=== PATIENT | male | born 1955 | race Caucasian/White ===

== ENCOUNTER 2021-11-21 20:28 | Emergency (ER) | payer MEDICARE ==
[2021-11-21] MEDS ORDERED: Zofran 4 MG/2 ML VIAL IV ONE (21:20)
[2021-11-21] MEDS ORDERED: MORPHINE SULFATE 4 MG INJ IV ONE (21:20)
[2021-11-21] MEDS ORDERED: Sodium Chloride 0.9% 500 ML 500 ML IV ONE ×2 (21:21→21:24)
[2021-11-21] MEDS ORDERED: Zofran 4 MG/2 ML VIAL ONE (21:23)
[2021-11-21] MEDS ORDERED: MORPHINE SULFATE 4 MG INJ ONE (21:23)
--- NOTE | 2021-11-21 21:26 | ERPHSYRPT ---
- History of Present Illness Time Seen by Provider: 11/21/21 20:48 Historian: patient Exam Limitations: no limitations Patient Subjective Stated Complaint: Patient started having abdominal pain approx 4-5 hours ago. Patient states he took a tums in hopes it was indigestion, which helped a little bit so he decided to eat some dinner around 7pm. Patient states approx 10 minutes after finishing dinner, he vomited up his entire meal and the pain became worse. States pain is in his upper mid abdomen just below his sternum. Denies diarrhea or constipation with last BM this am; reports normal in appearance. Denies SOB or chest pain. Triage Nursing Assessment: Patient ambulated back to ED holding/gaurding the area just above his abdomen. He is alert and oriented and answering questions appropriately. Abdomen is large and firm. Denies pain radiating/moving anywhere else. Denies increase in pain during palpation but grimaced and yelled out in p ain with deep palpation to right upper abdominal quad. Hypoactive bowel sounds. No SOB noted. Physician History: 66 years old male with a history of coronary artery disease status post CABG, hypertension, hyperlipidemia presented in the ER with 4-5-hour history of epigastric pain sudden onset moderate to severe intensity sharp nature which got somewhat better with taking Tums but after eating dinner it got worse again and had nausea and vomited prior to arrival. Patient currently rates -07/2010 intensity pain with none radiation. No fever or chills reported. Timing/Duration: hour(s) (5), constant, sudden, worse Activities at Onset: rest Quality: sharpness Abdominal Pain Onset Location: RUQ, epigastric, periumbilical Pain Radiation: no radiation Severity of Pain-Max: severe Severity of Pain-Current: severe Modifying Factors: Worsens With: eating Associated Symptoms: nausea, vomiting Previous symptoms: no prior history Allergies/Adverse Reactions: No Known Drug Allergies Allergy (Verified 11/21/21 20:53) Home Medications: Atorvastatin Calcium 80 mg PO DAILY 02/09/13 [History] Clopidogrel Bisulfate [Plavix] 75 mg PO DAILY 02/09/13 [History] Diclofenac Sodium [Voltaren] 75 mg PO BID 02/09/13 [History] Calhoun-3 Fatty Acids/Fish Oil [Fish Oil 1,000 mg Capsule] 120 mg PO QID 02/09/13 [History] Vitamin B Complex [B Complex] 1 each PO DAILY 02/09/13 [History] Carvedilol 3.125 mg [Coreg 3.125 MG] 6.25 mg PO BID 03/12/16 [History] Alpha Lipoic Acid 1 cap PO BID 11/21/21 [History] Folic Acid/Vit B Complex and C [Nephro-Sara Tablet] 1 tab PO DAILY 11/21/21 [History] Gabapentin 100 mg [Neurontin 100 MG] 1 cap PO TID 11/21/21 [History] Isosorbide Mononitrate [Isosorbide Mononitrate ER] 1 tab PO DAILY 11/21/21 [History] Valsartan 1 tab PO DAILY 11/21/21 [History] Hx Tetanus, Diphtheria Vaccination/Date Given: Yes Hx Influenza Vaccination/Date Given: Yes Hx Pneumococcal Vaccination/Date Given: No Immunizations Up to Date: Yes Travel Risk - International Travel Have you traveled outside of the country in past 3 weeks: No - Coronavirus Screening Are you exhibiting any of the following symptoms?: Yes Symptoms: Vomiting/Diarrhea Close contact with a COVID-19 positive Pt in past 14-21 Days: No - Vaccine Status Have you recieved a Covid-19 vaccination: Yes Component Design Engineer: [employer] - Vaccination Dates Date of 2cond Vaccination (if applicable): 2020 Comment: Booster recently - Review of Systems Constitutional: No Symptoms Eyes: No Symptoms Ears, Nose, & Throat: No Symptoms Respiratory: No Symptoms Cardiac: No Symptoms Abdominal/Gastrointestinal: Abdominal Pain, Nausea, Vomiting Genitourinary Symptoms: No Symptoms Musculoskeletal: No Symptoms Skin: No Symptoms Neurological: No Symptoms Psychological: No Symptoms Endocrine: No Symptoms Hematologic/Lymphatic: No Symptoms Immunological/Allergic: No Symptoms - Past Medical History Pertinent Past Medical History: Yes Neurological History: No Pertinent History ENT History: No Pertinent History Cardiac History: Angina, Coronary Artery Disease, High Cholesterol, Hypertension Respiratory History: No Pertinent History Endocrine Medical History: No Pertinent History Musculoskeletal History: Arthritis GI Medical History: No Pertinent History History: No Pertinent History Psycho-Social History: No Pertinent History Male Reproductive Disorders: No Pertinent History Other Medical History: 2 cody for chronic back pain - Past Surgical History Past Surgical History: Yes Neuro Surgical History: No Pertinent History Cardiac: Cardiac Catheterization, Cardiac Stent, Other Respiratory: No Pertinent History Gastrointestinal: No Pertinent History Genitourinary: No Pertinent History Musculoskeletal: Other Male Surgical History: No Pertinent History Other Surgical History: back surgery, Triple bypass in 2017 - Social History Smoking Status: Former smoker How long have you smoked: 35yrs Exposure to second hand smoke: No Drug Use: none Patient Lives Alone: No - Nursing Vital Signs Nursing Vital Signs: Initial Vital Signs Temperature 97.6 F 11/21/21 20:54 Pulse Rate 71 11/21/21 20:54 Respiratory Rate 22 11/21/21 20:54 Blood Pressure 197/111 11/21/21 20:54 O2 Sat by Pulse Oximetry 97 11/21/21 20:54 Pain Scale Pain Intensity 3 - Physical Exam General Appearance: no apparent distress, alert Eye Exam: PERRL/EOMI, eyes nml inspection Ears, Nose, Throat Exam: normal ENT inspection, pharynx normal Neck Exam: normal inspection, non-tender, supple, full range of motion Respiratory Exam: normal breath sounds, lungs clear Cardiovascular Exam: regular rate/rhythm, normal heart sounds Gastrointestinal/Abdomen Exam: tenderness, guarding (Epigastrium/right upper quadrant with positive Lala sign.), No normal bowel sounds (Hypoactive) Extremity Exam: normal inspection, normal range of motion Neurologic Exam: alert, oriented x 3, cooperative SpO2 Interpretation: normal SpO2: 97 O2 Delivery: Room Air Ordered Tests: Active Orders 24 hr Category Date Time Status EKG-ER Only STAT Care 11/21/21 21:20 Active IV Insertion STAT Care 11/21/21 21:20 Active NPO (ED) STAT Care 11/21/21 21:20 Active ABDOMEN AND PELVIS W CONTRAST [CT] Stat Exams 11/21/21 21:20 Taken CBC W DIFF Stat Lab 11/21/21 21:35 Completed CMP Stat Lab 11/21/21 21:35 Completed LIPASE Stat Lab 11/21/21 21:35 Completed TROPONIN Q3H Lab 11/21/21 21:35 Completed TROPONIN Q3H Lab 11/22/21 00:30 Ordered TROPONIN Q3H Lab 11/22/21 03:30 Ordered TROPONIN Q3H Lab 11/22/21 06:30 Ordered TROPONIN Q3H Lab 11/22/21 09:30 Ordered UA W/RFX UR CULTURE Stat Lab 11/21/21 21:20 Completed Medication Summary Discontinued Medications Generic Name Dose Route Start Last Admin Trade Name Freq PRN Reason Stop Dose Admin Sodium Chloride 500 mls @ 500 mls/hr 11/21/21 21:21 11/21/21 22:27 Sodium Chloride 0.9% 500 Ml IV 11/21/21 22:20 Infused .Q1H ONE Infusion Sodium Chloride Confirm 11/21/21 21:24 Sodium Chloride 0.9% 500 Ml Administered 11/21/21 21:25 Dose 500 mls @ ud IV .STK-MED ONE Morphine Sulfate 4 mg 11/21/21 21:20 11/21/21 21:25 Morphine Sulfate 4 Mg/Ml Injection IV 11/21/21 21:21 4 mg STAT ONE Administration Morphine Sulfate Confirm 11/21/21 21:23 Morphine Sulfate 4 Mg/Ml Injection Administered 11/21/21 21:24 Dose 4 mg .ROUTE .STK-MED ONE Ondansetron HCl 4 mg 11/21/21 21:20 11/21/21 21:25 Ondansetron Hcl 4 Mg/2 Ml Vial IV 11/21/21 21:21 4 mg STAT ONE Administration Ondansetron HCl Confirm 11/21/21 21:23 Ondansetron Hcl 4 Mg/2 Ml Vial Administered 11/21/21 21:24 Dose 4 mg .ROUTE .STK-MED ONE Lab/Rad Data: Laboratory Result Diagrams 11/21/21 21:35 11/21/21 21:35 Laboratory Results 11/21/21 11/21/21 11/21/21 Range/Units 21:35 21:35 21:35 WBC 8.8 (4.0-10.5) K/mm3 RBC 5.53 (4.1-5.6) M/mm3 Hgb 17.0 (12.5-18.0) gm/dl Hct 49.4 (42-50) % MCV 89.3 (78-100) fl MCH 30.7 (26-32) pg MCHC 34.4 (32-36) g/dl RDW 12.7 (11.5-14.0) % Plt Count 238 (150-450) K/mm3 MPV 10.0 (7.5-11.0) fl Gran % 66.3 H (36.0-66.0) % Eos # (Auto) 0.19 (0-0.5) Absolute Lymphs (auto) 2.11 (1.0-4.6) Absolute Monos (auto) 0.63 (0.0-1.3) Lymphocytes % 24.0 (24.0-44.0) % Monocytes % 7.2 (0.0-12.0) % Eosinophils % 2.2 (0.00-5.0) % Basophils % 0.3 (0.0-0.4) % Absolute Granulocytes 5.82 (1.4-6.9) Basophils # 0.03 (0-0.4) Sodium 140 (137-145) mmol/L Potassium 4.6 (3.5-5.1) mmol/L Chloride 102 (98-107) mmol/L Carbon Dioxide 25 (22-30) mmol/L Anion Gap 17.2 H (5-15) MEQ/L BUN 21 H (9-20) mg/dL Creatinine 0.87 (0.66-1.25) mg/dL Estimated GFR > 60.0 ML/MIN Glucose 116 H (74-106) mg/dL Calcium 9.9 (8.4-10.2) mg/dL Total Bilirubin 0.90 (0.2-1.3) mg/dL AST 42 (17-59) U/L ALT 46 (0-50) U/L Alkaline Phosphatase 103 (38-126) U/L Troponin I < 0.012 (0.000-0.034) ng/mL Serum Total Protein 8.0 (6.3-8.2) g/dL Albumin 5.0 (3.5-5.0) g/dL Lipase 105 (23-300) U/L Urine Color (YELLOW) Urine Appearance (CLEAR) Urine pH (5-6) Ur Specific [place] (1.005-1.025) Urine Protein (Negative) Urine Ketones (NEGATIVE) Urine Blood (0-5) Hawk/ul Urine Nitrite (NEGATIVE) Urine Bilirubin (NEGATIVE) Urine Urobilinogen (0-1) mg/dL Ur Leukocyte Esterase (NEGATIVE) Urine WBC (Auto) (0-5) /HPF Urine RBC (Auto) (0-2) /HPF U Epithel Cells (Auto) (FEW) /HPF Urine Bacteria (Auto) (NEGATIVE) /HPF Urine Mucus (Auto) (NEGATIVE) /HPF Urine Culture Reflexed (NO) Urine Glucose (NEGATIVE) mg/dL 11/21/21 Range/Units 21:20 WBC (4.0-10.5) K/mm3 RBC (4.1-5.6) M/mm3 Hgb (12.5-18.0) gm/dl Hct (42-50) % MCV (78-100) fl MCH (26-32) pg MCHC (32-36) g/dl RDW (11.5-14.0) % Plt Count (150-450) K/mm3 MPV (7.5-11.0) fl Gran % (36.0-66.0) % Eos # (Auto) (0-0.5) Absolute Lymphs (auto) (1.0-4.6) Absolute Monos (auto) (0.0-1.3) Lymphocytes % (24.0-44.0) % Monocytes % (0.0-12.0) % Eosinophils % (0.00-5.0) % Basophils % (0.0-0.4) % Absolute Granulocytes (1.4-6.9) Basophils # (0-0.4) Sodium (137-145) mmol/L Potassium (3.5-5.1) mmol/L Chloride (98-107) mmol/L Carbon Dioxide (22-30) mmol/L Anion Gap (5-15) MEQ/L BUN (9-20) mg/dL Creatinine (0.66-1.25) mg/dL Estimated GFR ML/MIN Glucose (74-106) mg/dL Calcium (8.4-10.2) mg/dL Total Bilirubin (0.2-1.3) mg/dL AST (17-59) U/L ALT (0-50) U/L Alkaline Phosphatase (38-126) U/L Troponin I (0.000-0.034) ng/mL Serum Total Protein (6.3-8.2) g/dL Albumin (3.5-5.0) g/dL Lipase (23-300) U/L Urine Color YELLOW (YELLOW) Urine Appearance SLIGHTLY CLOUDY (CLEAR) Urine pH 5.0 (5-6) Ur Specific [place] 1.015 (1.005-1.025) Urine Protein NEGATIVE (Negative) Urine Ketones NEGATIVE (NEGATIVE) Urine Blood NEGATIVE (0-5) Hawk/ul Urine Nitrite NEGATIVE (NEGATIVE) Urine Bilirubin NEGATIVE (NEGATIVE) Urine Urobilinogen NEGATIVE (0-1) mg/dL Ur Leukocyte Esterase NEGATIVE (NEGATIVE) Urine WBC (Auto) NONE (0-5) /HPF Urine RBC (Auto) NONE (0-2) /HPF U Epithel Cells (Auto) NONE (FEW) /HPF Urine Bacteria (Auto) NONE (NEGATIVE) /HPF Urine Mucus (Auto) SLIGHT (NEGATIVE) /HPF Urine Culture Reflexed NO (NO) Urine Glucose NEGATIVE (NEGATIVE) mg/dL - Progress Progress: improved Progress Note: 11/21/21 23:52 66-year-old is evaluated for epigastric/right upper quadrant pain. Given pain medication x1, on reevaluation feeling much better and no peritoneal signs Has normal white count, grossly unremarkable chemistries including liver enzymes. CT showed pericholecystic fluid/edema with some sludge. Discussed with Dr. Duran, reviewed history, work-up, recommended outpatient follow-up with him in the morning. We will give him pain medications to go home. Discussed signs symptoms of worsening needing return to ER which he seems understanding. Stable for discharge. Discussed with Dr.: Maegan Counseled pt/family regarding: lab results, diagnosis, need for follow-up, rad results - Departure Departure Disposition: Home Clinical Impression: Cholecystitis, Dizziness Critical Care Time: No Referrals: ANT CARLOS MD [Primary Care Provider] - NICOL PACK [ACTIVE STAFF] - Follow up/PCP as directed (Call in the morning for appointment and further evaluation.) Instructions: Gallstones (DC) Additional Instructions: Take pain medications as needed. Follow-up with Dr. Duran tomorrow for reeva luation. Return to ER for intractable pain/vomiting/fever chills etc. Prescriptions: Hydrocodone/Acetaminophen [Hydrocodone-Acetamin 7.5-325] 1 each PO Q6HPRN PRN 3 Days #12 tablet MDD 4 PRN Reason: Pain
[2021-11-21 21:32] LABS: Appearance SLIGHTLY CLOUDY (CLEAR); Bilirubin NEGATIVE (NEGATIVE); Blood NEGATIVE Ery/ul (0-5); Glucose NEGATIVE (NEGATIVE); Ketones NEGATIVE (NEGATIVE); Leukocyte Esterase NEGATIVE (NEGATIVE); Mucus SLIGHT /HPF (NEGATIVE); Nitrite NEGATIVE (NEGATIVE); Protein,Urine Dip NEGATIVE (Negative); Specific Gravity 1.015 (1.005-1.025); Urobilinogen NEGATIVE mg/dL (0-1)
[2021-11-21 21:47] LABS: Absolute Neutrophil Ct (ANC) 5.82 (1.4-6.9); Basophil (Absolute #) 0.03 (0-0.4); Eosinophil % 2.2 % (0.00-5.0); Eosinophil (Absolute #) 0.19 (0-0.5); Hematocrit 49.4 % (42-50); Lymphocyte (Absolute #) 2.11 (1.0-4.6); Mean Cell Volume 89.3 fl (78-100); Mean Corpuscular Hemoglobin 30.7 pg (26-32); Mean Corpuscular Hgb Concent. 34.4 g/dl (32-36); Monocyte (Absolute #) 0.63 (0.0-1.3); Monocytes % 7.2 % (0.0-12.0); Neutrophil % 66.3 % (36.0-66.0); Platelet Count 238 K/mm3 (150-450); Red Blood Count 5.53 M/mm3 (4.1-5.6); Red Cell Distribution Width 12.7 % (11.5-14.0); White Blood Count 8.8 K/mm3 (4.0-10.5)
[2021-11-21 22:04] LABS: ALKALINE PHOSPHATASE 103 U/L (38-126); ANION GAP 17.2 MEQ/L (5-15); BLOOD UREA NITROGEN 21 mg/dL (9-20); CHLORIDE 102 mmol/L (98-107); Calcium 9.9 mg/dL (8.4-10.2); Carbon Dioxide 25 mmol/L (22-30); Creatinine 1 0.87 mg/dL (0.66-1.25); EST GLOMERULAR FILTRATION RATE > 60.0 ML/MIN; Glucose 116 mg/dL (74-106); LIPASE 105 U/L (23-300); Potassium 4.6 mmol/L (3.5-5.1); SGOT/AST 42 U/L (17-59); SGPT/ALT 46 U/L (0-50); SODIUM 140 mmol/L (137-145)
[2021-11-21] MEDS ORDERED: NORCO 5/325 MG PO ONE (23:56)
[2021-11-21] MEDS ORDERED: NORCO 5/325 MG ONE (23:58)
[2021-11-22 00:12] VITALS: BP 130/82; PULSE 74; O2SAT 98
--- NOTE | 2021-11-22 08:46 | XRAY ---
Indication: Upper abdomen pain, nausea, and vomiting. Cholecystitis. Pancreatitis. History of prostate cancer. Multiple contiguous axial images obtained through the abdomen and pelvis using 80 cc Isovue 370 contrast. Comparison: June 01, 2021. Lung bases again demonstrates mild dependent atelectasis. No infiltrate or effusion. Heart is not enlarged. Stable small hiatal hernia. Stomach is distended with food/fluid. Noncontrasted stomach and bowel loops appear nonobstructed with normal appendix. New prostate radiation seeds. Gallbladder is mildly distended again with tiny fundal gallstones/gravel. No abnormal biliary distention. Stable fatty liver. Remaining liver, gallbladder, pancreas, spleen, adrenal glands, kidneys, ureters, and bladder are unremarkable. There remains mild aortoiliac calcifications. No AAA or pathologic retroperitoneal lymphadenopathy. Osseous structures intact again with mild degenerative changes throughout the spine and 2 small sclerotic lesions of the left innominate bone. Stable small fatty left inguinal hernia. Impression: 1. Distended gallbladder with stable tiny gallstones/gravel. Gallbladder sonogram may yield further information if clinically warranted. 2. Again incidental small hiatal hernia, fatty liver, small fatty left inguinal hernia, and chronic bony findings. Comment: Preliminary interpretation made by [facility]. No critical discrepancy.
== END 2021-11-22 00:13 | disposition home or self-care (01) ==
LOC: ED 20:28
DX: K81.9 Cholecystitis, unspecified (principal); R42 Dizziness and giddiness; I25.10 Atherosclerotic heart disease of native coronary artery without angina pectoris; I10 Essential (primary) hypertension; Z95.1 Presence of aortocoronary bypass graft; E78.5 Hyperlipidemia, unspecified; Z79.01 Long term (current) use of anticoagulants; Z79.899 Other long term (current) drug therapy; Z79.891 Long term (current) use of opiate analgesic
CPT/HCPCS: 36000; 36415; 74177; 80053; 81001; 83690; 84484; 85025; 93005; 96374; 96375; 99284; J2270; J2405; A9270-GY

== ENCOUNTER 2021-12-06 06:30 | Day surgery (SDC) | payer MEDICARE ==
--- NOTE | 2021-11-30 15:12 | HP ---
DATE OF SURGERY: 12/06/2021 HISTORY OF PRESENT ILLNESS: The patient is a 66-year-old male presents with complaints of bad epigastric pain at night. The patient went to the emergency room for this. He states he has not had pain like this in the past. He did report eating some chicken and had a flare up with this. He had a touch of nausea and vomiting. The patient did have an ultrasound showing some gallstones during the emergency room visit. PAST MEDICAL HISTORY: Hypertension. Hyperlipidemia. Coronary artery disease. PAST SURGICAL HISTORY: Triple bypass. Coronary artery bypass graft 2016. Prostate seeds in August for prostate cancer. ALLERGIES: NKDA. MEDICATIONS: Atorvastatin, Plavix, Valsartan, isosorbide, Coreg, diclofenac, Lomotil. FAMILY HISTORY: Prostate cancer. SOCIAL HISTORY: None reported. REVIEW OF SYSTEMS: CONSTITUTIONAL: Denies fever or chills. CHEST: Denies shortness of breath. CVS: Denies chest pain. ABDOMEN: Reports severe epigastric pain, nausea, vomiting, occasional diarrhea. Denies constipation or rectal bleeding. PHYSICAL EXAMINATION: GENERAL: No acute distress. CHEST: Nonlabored. No shortness of breath. CVS: Regular rate and rhythm. ABDOMEN: Soft, tender in epigastric. IMPRESSION: Severe epigastric pain and cholelithiasis. PLAN: EGD and laparoscopic cholecystectomy with Dr. Mich Brennan. As dictated by Hannah Ferreira NP.
[2021-12-06] MEDS ORDERED: Sensorcaine 0.25% 10 ML ONE (06:36)
[2021-12-06] MEDS ORDERED: MEFOXIN 2 GM PREMIX** 2 GM/50 ML ML IV SCH (07:00)
[2021-12-06] MEDS ORDERED: Lactated Ringers 1,000 ML IV SCH (07:00)
[2021-12-06] MEDS ORDERED: SUBLIMAZE 100 MCG/2 ML ONE ×2 (09:39→10:26)
[2021-12-06] MEDS ORDERED: Zemuron 100 MG/10 ML ONE ×2 (09:39→10:19)
[2021-12-06] MEDS ORDERED: TORAdol 30 mg Injection ONE (09:39)
[2021-12-06] MEDS ORDERED: BRIDION 200MG/2ML IV ONE (09:39)
[2021-12-06] MEDS ORDERED: Xylocaine-Mpf 2% 5 Ml Vial ONE (09:39)
[2021-12-06] MEDS ORDERED: Decadron 4 MG INJ ONE (09:39)
[2021-12-06] MEDS ORDERED: Zofran 4 MG/2 ML VIAL ONE (09:39)
[2021-12-06] MEDS ORDERED: DIPRIVAN 200 MG/20 ML IV ONE (09:39)
[2021-12-06] MEDS ORDERED: TRANDATE 20 MG/4 ML SYRINGE IV ONE (10:36)
[2021-12-06] MEDS ORDERED: MORPHINE SULFATE 10 MG/ML ONE (10:59)
[2021-12-06] MEDS ORDERED: APRESOLINE 20 MG/ML INJ ONE (11:12)
--- NOTE | 2021-12-06 11:21 | OP ---
SURGERY DATE/TIME: 12/06/2021 0946 PREOPERATIVE DIAGNOSIS: Upper abdominal pain, nausea, cholelithiasis. POSTOPERATIVE DIAGNOSES: 1) Symptomatic cholelithiasis. 2) Grade 3 over 4 gastroesophageal reflux disease with question of early varices. PROCEDURES: 1) Laparoscopic cholecystectomy. 2) EGD. SURGEON: Mich Brennan M.D. ANESTHESIA: Versed and Demerol. COMPLICATIONS: None. CONDITION: Stable. INDICATION: The patient disproportionate epigastric pain. He does have stones. His stone symptoms do not absolutely correlate. He is requiring cholecystectomy for stones. We will do an EGD for his epigastric pain which has been fairly new and persistent. DESCRIPTION OF PROCEDURE AND FINDINGS: He is taken to surgery. General anesthetic, routine prep and drape. Veress needle inserted. Opening pressure of 1, insufflating pressure 14. Four - 5's. Good visualization. Cystic duct defined. Cystic artery defined. Gallbladder was large and distended. Cystic duct triply clipped and transected. Clips noted across and well approximated. Gallbladder rolled out of gallbladder fossa. The gallbladder delivered through upper abdominal port with slight widening. Hole closure device was used. Field dry and clean. The clips were inspected and were satisfactory. The scope was introduced. Pharyngoesophageal junction normal. Esophagus normal down to gastroesophageal junction. There was grade 2 over 4 gastroesophageal reflux disease. There was no hiatal hernia but it was very irritated, extremely irritated and it almost looked like an early varices on the right lateral corner. Fundus, body and antrum normal. Pylorus normal. Duodenal bulb normal. Second portion normal. Scope withdrawn looped upon itself. Gastroesophageal junction basically satisfactory from below although irritation was visible from below. The patient was started on Protonix for three months. I think we will do a follow up scope in three months. Findings discussed with the family in the waiting room.
[2021-12-06] MEDS ORDERED: NORCO 5/325 MG PO PRN (12:07)
[2021-12-06 12:14] VITALS: O2SAT 93
[2021-12-06 13:07] VITALS: BP 144/89; PULSE 82
== END 2021-12-06 13:05 | disposition home or self-care (01) ==
LOC: SDC 06:30
PROVIDERS: ATTEND Surgery
DX: K80.20 Calculus of gallbladder without cholecystitis without obstruction (principal); K21.9 Gastro-esophageal reflux disease without esophagitis
CPT/HCPCS: 93005; J0360; J0694; J1100; J1885; J2270; J2405; J2704; J3010; A9270-GY

== ENCOUNTER 2022-03-14 07:31 | Day surgery (SDC) | payer MEDICARE ==
--- NOTE | 2022-03-08 08:45 | HP ---
DATE OF SURGERY: 03/14/2022 HISTORY OF PRESENT ILLNESS: The patient is a 66-year-old male who presented for follow up evaluation of esophageal varices. The patient recently scoped and had gallbladder out about three months ago. On his recent exam we did find some grade 2/4 reflux. There was no hiatal hernia. It looked extremely irritated almost varices-like appearance to the right lateral corner. The remainder of the exam was normal. He was started on Protonix and we wanted to rescope him in three month for the early varices. PAST MEDICAL HISTORY: Coronary artery disease. Hypertension. Prostate cancer. PAST SURGICAL HISTORY: Triple bypass. Prostate seeds. Laparoscopic cholecystectomy. ALLERGIES: NKDA. MEDICATIONS: Atorvastatin, Plavix, Valsartan, isosorbide, carvedilol, diclofenac. FAMILY HISTORY: Negative. SOCIAL HISTORY: None reported. REVIEW OF SYSTEMS: CONSTITUTIONAL: Denies fever or chills. CHEST: Denies shortness of breath. CVS: Denies chest pain. ABDOMEN: Denies abdominal pain. PHYSICAL EXAMINATION: GENERAL: No acute distress. CHEST: Nonlabored. No shortness of breath. CVS: Regular rate and rhythm. ABDOMEN: Soft. IMPRESSION: Evaluation of esophageal varices. PLAN: EGD with Dr. Mich Brennan. As dictated by Hannah Ferreira NP.
[2022-03-14] MEDS ORDERED: Lactated Ringers 1,000 ML IV ONE (07:48)
[2022-03-14] MEDS ORDERED: Lactated Ringers 1,000 ML IV SCH (08:00)
[2022-03-14] MEDS ORDERED: Xylocaine-Mpf 2% 5 Ml Vial ONE (09:14)
[2022-03-14] MEDS ORDERED: DIPRIVAN 200 MG/20 ML IV ONE (09:14)
--- NOTE | 2022-03-14 09:47 | OP ---
SURGERY DATE/TIME: 03/14/2022 0915 PREOPERATIVE DIAGNOSIS: Evaluate for varices. POSTOPERATIVE DIAGNOSES: 1) Grade 2/4 gastroesophageal reflux disease. 2) No varices. 3) No hiatal hernia. PROCEDURE: EGD. SURGEON: Mcih Brennan M.D. ANESTHESIA: MAC. COMPLICATIONS: None. CONDITION: Stable. INDICATION: A patient presents for evaluation of varices. DESCRIPTION OF PROCEDURE: He is taken to endoscopy. MAC sedation provided. Scope introduced. Pharyngoesophageal junction normal. Esophagus normal down to gastroesophageal junction. Rim of esophagitis grade 2. No varices either esophageal or gastric. No hiatal hernia. Fundus, body and antrum normal. Pylorus normal. Duodenal bulb normal. Second portion normal. Scope withdrawn looped upon itself. No hiatal hernia. No gastric varices. No esophageal varices. The patient tolerated the procedure satisfactorily.
[2022-03-14 10:21] VITALS: BP 138/81; PULSE 72; O2SAT 96
== END 2022-03-14 10:25 | disposition home or self-care (01) ==
LOC: SDC 07:31
PROVIDERS: ATTEND Surgery
DX: Z13.810 Encounter for screening for upper gastrointestinal disorder (principal); K21.9 Gastro-esophageal reflux disease without esophagitis; Z79.01 Long term (current) use of anticoagulants; Z85.46 Personal history of malignant neoplasm of prostate
CPT/HCPCS: J2704

== ENCOUNTER 2025-02-09 16:04 | Emergency (ER) | payer MEDICARE ==
--- NOTE | 2025-02-09 16:35 | ERPHSYRPT ---
- History of Present Illness Historian: patient Exam Limitations: no limitations Patient Subjective Stated Complaint: pt here for right flank pain today, he states pain comes and goes, no injury, no pain wih urination Triage Nursing Assessment: pt alert, resp easy. skin w/d/p. abd soft, no cough, moves all ext well, Timing/Duration: day(s) (2) Activities at Onset: none Quality: sharpness Abdominal Pain Onset Location: flank (R) Pain Radiation: no radiation Severity of Pain-Max: moderate Severity of Pain-Current: none Modifying Factors: Improves With: nothing Associated Symptoms: back, No diarrhea, No fever/chills, No nausea, No vomiting Previous symptoms: no prior history Hx Tetanus, Diphtheria Vaccination/Date Given: No Hx Influenza Vaccination/Date Given: Yes Hx Pneumococcal Vaccination/Date Given: Yes Immunizations Up to Date: Yes - History of Present Illness Time Seen by Provider: 02/09/25 16:20 Physician History: 69yo m pmhx CAD s/p CABG, HTN, presents via private vehicle for intermittent right flank pain that started 2d ago. Pt reports the pain comes and goes, reports he does not associate his pain w/ any certain activity. Pt reports the pain does not radiate into his abdomen, reports it stays in his right flank and right low back. Pt currently reports his pain has resolved, reports it was severe on his way here. Pt denies any dysuria or hematuria, denies any constipation or diarrhea, denies any fevers or chills. Pt denies any known hx of kidney stones. (NIMESH FLORES) Allergies/Adverse Reactions: No Known Drug Allergies Allergy (Verified 02/09/25 16:11) Home Medications: Atorvastatin Calcium 80 mg PO DAILY 02/09/13 [History] Clopidogrel Bisulfate [Plavix] 75 mg PO DAILY 02/09/13 [History] Diclofenac Sodium [Voltaren] 75 mg PO BID 02/09/13 [History] Broadus-3 Fatty Acids/Fish Oil [Fish Oil 1,000 mg Capsule] 120 mg PO QID 02/09/13 [History] Vitamin B Complex [B Complex] 1 each PO DAILY 02/09/13 [History] Carvedilol 3.125 mg [Coreg 3.125 MG] 6.25 mg PO BID 03/12/16 [History] Isosorbide Mononitrate [Isosorbide Mononitrate ER] 1 tab PO DAILY 11/21/21 [History] Valsartan 1 tab PO DAILY 11/21/21 [History] Alpha Lipoic Acid [Lipoic Acid] 25 gm MC BID 03/12/22 [History] Folic Acid/B Cmplx C/Rice Bran [Vitamin B-Complex & C Caplet] 1 each PO DAILY 03/12/22 [History] Gabapentin [Neurontin ] 100 mg PO TID 03/12/22 [History] Travel Risk - International Travel Have you traveled outside of the country in past 3 weeks: No - Emerging Infectious Disease Are you exhibiting symptoms associated with any current EIDs: No - Review of Systems Constitutional: No Symptoms Respiratory: No Symptoms Cardiac: No Symptoms Abdominal/Gastrointestinal: No Symptoms Genitourinary Symptoms: Flank Pain, No Dysuria, No Frequency, No Hematuria, No Incontinence Musculoskeletal: Back Pain - Past Medical History Pertinent Past Medical History: Yes Neurological History: Peripheral Neuropathy ENT History: No Pertinent History Cardiac History: Coronary Artery Disease, High Cholesterol, Hypertension Respiratory History: No Pertinent History Endocrine Medical History: No Pertinent History Musculoskeletal History: Osteoarthritis GI Medical History: No Pertinent History, Gallbladder Disease History: No Pertinent History Psycho-Social History: No Pertinent History Male Reproductive Disorders: Prostate Cancer Other Medical History: CARDIAC BYPASS X3, - Past Surgical History Past Surgical History: Yes Neuro Surgical History: No Pertinent History Cardiac: CABG, Cardiac Catheterization, Cardiac Stent, Other Respiratory: No Pertinent History Gastrointestinal: Cholecystectomy Genitourinary: No Pertinent History Musculoskeletal: Orthopedic Surgery, Other Male Surgical History: No Pertinent History Other Surgical History: back surgery, Triple bypass in 2017,knee replaced - Social History Smoking Status: Former smoker Exposure to second hand smoke: No Drug Use: none - Social Determinants of Health Will the patient participate in the screening: Declined to provide - Physical Exam General Appearance: no apparent distress, alert Respiratory Exam: normal breath sounds, lungs clear, airway intact, No chest tenderness, No respiratory distress Cardiovascular Exam: regular rate/rhythm, normal heart sounds, normal peripheral pulses Gastrointestinal/Abdomen Exam: soft, normal bowel sounds, No tenderness, No distention, No guarding Back Exam: CVA tenderness (minimal TTP over right flank), muscle spasm (right lower lumbar spasm/hypertonicity), No vertebral tenderness, No point tenderness Neurologic Exam: alert, oriented x 3, cooperative, normal mood/affect, nml cerebellar function, nml station & gait, sensation nml, No motor deficits SpO2: 97 - Nursing Vital Signs Nursing Vital Signs: Initial Vital Signs Temperature 97.0 F 02/09/25 16:20 Pulse Rate 74 02/09/25 16:20 Respiratory Rate 18 02/09/25 16:20 Blood Pressure 188/103 02/09/25 16:20 O2 Sat by Pulse Oximetry 97 02/09/25 16:20 Pain Scale Pain Intensity 0 Ordered Tests: Active Orders 24 hr Category Date Time Status ABDOMEN AND PELVIS W/0 CONTRAS [CT] Stat Exams 02/09/25 16:29 Completed CBC W DIFF Stat Lab 02/09/25 17:09 Completed CMP Stat Lab 02/09/25 17:09 Completed CULTURE,URINE Stat Lab 02/09/25 16:31 Received UA W/RFX UR CULTURE Stat Lab 02/09/25 16:31 Completed Medication Summary Generic Name Dose Route Start Last Admin Trade Name Freq PRN Reason Stop Dose Admin Sodium Chloride 1,000 mls @ 50 mls/hr 02/09/25 17:45 02/09/25 17:49 Sodium Chloride 0.9% 1000 Ml IV 03/11/25 17:44 50 mls/hr .Q20H SUPA Administration Discontinued Medications Generic Name Dose Route Start Last Admin Trade Name Freq PRN Reason Stop Dose Admin Ceftriaxone Sodium 1 gm in 100 mls @ 200 mls/hr 02/09/25 17:35 02/09/25 18:36 Rocephin 1 Gm / 100 Ml Nacl IV 02/09/25 18:04 Infused STAT ONE Infusion Ceftriaxone Sodium Confirm 02/09/25 17:44 Rocephin 1 Gm / 100 Ml Nacl Administered 02/09/25 17:45 Dose 1 gm in 100 mls @ ud IV .STK-MED ONE Lab/Rad Data: Laboratory Result Diagrams 02/09/25 17:09 02/09/25 17:09 Laboratory Results 02/09/25 02/09/25 02/09/25 Range/Units 17:09 17:09 16:31 WBC 10.9 H (4.23-9.07) x10^3/uL RBC 4.83 (4.63-6.08) x10^6/uL Hgb 14.9 (13.7-17.5) g/dL Hct 43.3 (40.1-51.0) % MCV 89.6 (79.0-92.2) fL MCH 30.8 (25.7-32.2) pg MCHC 34.4 (32.3-36.5) g/dL RDW 12.3 (11.6-14.4) % Plt Count 217 (163-337) x10^3/uL MPV 9.5 (9.4-12.4) fL Gran % 75.0 H (34.0-67.9) % Immature Gran % (Auto) 0.2 (0.001-0.429) % Nucleat RBC Rel Count 0.0 (0.00-0.2) % Eos # (Auto) 0.17 (0.04-0.54) x10^3/uL Immature Gran # (Auto) 0.02 (0.001-0.031) x10^3u/L Absolute Lymphs (auto) 1.64 (1.32-3.57) x10^3/uL Absolute Monos (auto) 0.85 H (0.30-0.82) x10^3/uL Absolute Nucleated RBC 0.00 (0.00-0.012) x10^3u/L Lymphocytes % 15.1 L (21.8-53.1) % Monocytes % 7.8 (5.3-12.2) % Eosinophils % 1.6 (0.8-7.0) % Basophils % 0.3 (0.2-1.2) % Absolute Granulocytes 8.17 H (1.78-5.38) x10^3/uL Basophils # 0.03 (0.01-0.08) x10^3/uL Sodium 140 (135-145) mmol/L Potassium 4.5 (3.5-5.1) mmol/L Chloride 104 (98-107) mmol/L Carbon Dioxide 23 (22-30) mmol/L Anion Gap 17.3 H (5-15) MEQ/L BUN 36 H (9-20) mg/dL Creatinine 1.52 H (0.66-1.25) mg/dL Estimated GFR 49.6 ML/MIN Glucose 114 H (74-106) mg/dL Calcium 9.3 (8.4-10.2) mg/dL Total Bilirubin 1.00 (0.2-1.3) mg/dL AST 45 (17-59) U/L ALT 52 H (0-50) U/L Alkaline Phosphatase 85 (38-126) U/L Serum Total Protein 7.2 (6.3-8.2) g/dL Albumin 4.7 (3.5-5.0) g/dL Urine Color Dark Yellow (Yellow) Urine Appearance Clear (Clear) Urine pH 5.0 (4.6-8.0) Ur Specific [place] >=1.030 A (1.005-1.030) Urine Protein Trace A (Negative) Urine Glucose (UA) Negative (Negative) mg/dL Urine Ketones Trace A (Negative) Urine Blood Moderate A (Negative) Urine Nitrite Negative (Negative) Urine Bilirubin Negative (Negative) Urine Urobilinogen 0.2 (0.2) mg/dL Ur Leukocyte Esterase Negative (Negative) U Hyaline Cast (Auto) 3-5 A (0-2) /LPF Urine Microscopic RBC 21-50 A (0-5) /HPF Urine Microscopic WBC 0-2 (0-5) /HPF Ur Epithelial Cells None Seen (None Seen) /HPF Urine Bacteria None Seen (None Seen) /HPF Urine Culture Reflexed YES (NO) - Progress Progress: re-examined Counseled pt/family regarding: lab results, diagnosis, need for follow-up, rad results - Progress Progress Note: 02/09/25 17:15 CT abd/pel showed 1. New 4-5 mm distal right ureteral calculus producing high-grade obstructive uropathy as detailed. Additional nonobstructing left renal punctate calculus. 2. Again chronic findings including hiatal hernia, fatty liver, fatty left inguinal hernia, arteriosclerotic disease, and chronic bony findings. I spoke w/ Dr Peña - urologist at [facility] who recommends transfer to their facility for [facility] the [facility] 02/09/25 17:32 I spoke w/ Dr Norris - hospitalist at [facility], who is willing to accept for transfer 02/09/25 17:36 will start IV fluids and give dose of rocephin 02/09/25 19:08 we are awaiting transfer to [facility] I discussed pt case w/ Dr Martinez who assumes care at 19:00 (NIMESH FLORES) Patient endorsed to Dr. Martinez at approximately 7 PM 02/09/25. We are expecting a phone call from [facility] this morning with a bed assignment for transfer. Patient resting throughout the night. No complications no issues. Patient has a distal right ureteral calculus causing an obstructive uropathy wit h acute renal injury. Patient reassessed. He is resting comfortably. No active pain. Vital stable. Plan of care discussed with patient. He agrees to transfer to [facility]. Patient voices no other complaints or concerns at this time. Portions of this note were created with voice recognition technology. There may be grammatical, spelling, punctuation or sound alike errors Complexity of problem addressed is moderate acute complicated. No critical care time. Complex of data reviewed and analyzed is extensive. Test ordered test reviewed results analyzed and correlated clinically with history and physical exam. Management discussed with provider at [facility]. Risk of complication and or risk of morbidity/mortality of patient management is high. Patient requires transfer/higher level of care for further evaluation and treatment. Vital stable. Time spent to transfer patient is approximately 30 minutes. Plan of care established for shared decision making. No social determinants of health present to impede follow-up. It is currently the change of shift. We are currently awaiting return call from [facility]. Patient will be endorsed to incoming physician Dr. Thomason who will resume care and oversee transfer.. Portions of this note were created with voice recognition technology. There may be grammatical, spelling, punctuation or sound alike errors 02/10/25 06:55 (WILFREDO MARTINEZ Medical Desision Making - Risk of complications The pt has a high risk of morbidity or mortality based on: Decision regarding hospitilization or escalation of hosp level of care - Departure Departure Disposition: Transfer Critical Care Time: No - Departure Clinical Impression: Obstructive uropathy, Right nephrolithiasis, Right flank pain Condition: Stable Referrals: ANT CARLOS MD [Primary Care Provider] - Follow up/PCP as directed
[2025-02-09 16:48] LABS: Appearance Clear (Clear); Bacteria None Seen /HPF (None Seen); Bilirubin Negative (Negative); Blood Moderate (Negative); Epithelial Cells None Seen /HPF (None Seen); Glucose, Urine Negative (Negative); Ketones Trace (Negative); Leukocyte Esterase Negative (Negative); Nitrite Negative (Negative); Protein,Urine Dip Trace (Negative); RBC 21-50 /HPF (0-5); Specific Gravity >=1.030 (1.005-1.030); Urobilinogen 0.2 mg/dL (0.2); WBC 0-2 /HPF (0-5)
--- NOTE | 2025-02-09 16:57 | XRAY ---
Indication: Right flank pain. Multiple contiguous axial images obtained through abdomen and pelvis without contrast using renal stone protocol. Comparison: November 21, 2021. Lung bases again demonstrates mild bilateral dependent atelectasis. No infiltrate or effusion. Heart not enlarged. Stable small hiatal hernia. New 4-5 mm distal right ureteral calculus approximately 1 cm proximal to UVJ. Proximal right ureter is prominent up to 9 mm along with mild hydronephrosis. Right kidney also edematous with moderate perinephric stranding and small perinephric fluid favoring high-grade obstructive uropathy. Left kidney demonstrates nonobstructing punctate calculus. Noncontrasted stomach and bowel loops appear nonobstructed with normal appendix. Interval cholecystectomy. Stable fatty liver and prostate radiation seeds. No free fluid/air. Remaining liver, pancreas, spleen, adrenal glands, and bladder are unremarkable for noncontrast exam. Again mild scattered aortoiliac calcifications without AAA. Osseous structures intact again with moderate changes throughout spine. Stable small fatty left inguinal hernia. Impression: 1. New 4-5 mm distal right ureteral calculus producing high-grade obstructive uropathy as detailed. Additional nonobstructing left renal punctate calculus. 2. Again chronic findings including hiatal hernia, fatty liver, fatty left inguinal hernia, arteriosclerotic disease, and chronic bony findings.
[2025-02-09 17:09] LABS: Absolute Neutrophil Ct (ANC) 8.17 x10^3/uL (1.78-5.38); BASOPHIL % 0.3 % (0.2-1.2); Basophil (Absolute #) 0.03 x10^3/uL (0.01-0.08); Eosinophil % 1.6 % (0.8-7.0); Eosinophil (Absolute #) 0.17 x10^3/uL (0.04-0.54); Hematocrit 43.3 % (40.1-51.0); Hemoglobin 14.9 g/dL (13.7-17.5); IMMATURE GRAN # 0.02 x10^3u/L (0.001-0.031); IMMATURE GRAN % 0.2 % (0.001-0.429); Lymphocyte (Absolute #) 1.64 x10^3/uL (1.32-3.57); Lymphocytes % 15.1 % (21.8-53.1); Mean Cell Volume 89.6 fL (79.0-92.2); Mean Corpuscular Hemoglobin 30.8 pg (25.7-32.2); Mean Corpuscular Hgb Concent. 34.4 g/dL (32.3-36.5); Mean Platelet Volume 9.5 fL (9.4-12.4); Monocyte (Absolute #) 0.85 x10^3/uL (0.30-0.82); Monocytes % 7.8 % (5.3-12.2); Platelet Count 217 x10^3/uL (163-337); Red Blood Count 4.83 x10^6/uL (4.63-6.08); Red Cell Distribution Width 12.3 % (11.6-14.4); White Blood Count 10.9 x10^3/uL (4.23-9.07)
[2025-02-09 17:23] LABS: ALBUMIN 4.7 g/dL (3.5-5.0); ANION GAP 17.3 MEQ/L (5-15); Calcium 9.3 mg/dL (8.4-10.2); Creatinine 1 1.52 mg/dL (0.66-1.25); EST GLOMERULAR FILTRATION RATE 49.6 ML/MIN; Potassium 4.5 mmol/L (3.5-5.1); Total Protein 7.2 g/dL (6.3-8.2)
[2025-02-09] MEDS ORDERED: ROCEPHIN 1 GM / 100 ML NaCl 1 GM/100 ML IVPB IV ONE (17:44)
[2025-02-09] MEDS: Sodium Chloride 0.9% 1000 ML 1,000 ML IV SCH (17:49)
[2025-02-09] MEDS: ROCEPHIN 1 GM / 100 ML NaCl 1 GM/100 ML IVPB IV ONE (17:51)
[2025-02-10 09:21] LABS: Absolute Neutrophil Ct (ANC) 6.02 x10^3/uL (1.78-5.38); BASOPHIL % 0.4 % (0.2-1.2); Basophil (Absolute #) 0.03 x10^3/uL (0.01-0.08); Eosinophil % 2.2 % (0.8-7.0); Eosinophil (Absolute #) 0.18 x10^3/uL (0.04-0.54); Hematocrit 43.4 % (40.1-51.0); Hemoglobin 14.6 g/dL (13.7-17.5); IMMATURE GRAN # 0.02 x10^3u/L (0.001-0.031); IMMATURE GRAN % 0.2 % (0.001-0.429); Lymphocyte (Absolute #) 1.32 x10^3/uL (1.32-3.57); Lymphocytes % 16.1 % (21.8-53.1); Mean Cell Volume 89.5 fL (79.0-92.2); Mean Corpuscular Hemoglobin 30.1 pg (25.7-32.2); Mean Corpuscular Hgb Concent. 33.6 g/dL (32.3-36.5); Mean Platelet Volume 9.3 fL (9.4-12.4); Monocyte (Absolute #) 0.62 x10^3/uL (0.30-0.82); Monocytes % 7.6 % (5.3-12.2); Neutrophil % 73.5 % (34.0-67.9); Platelet Count 203 x10^3/uL (163-337); Red Blood Count 4.85 x10^6/uL (4.63-6.08); Red Cell Distribution Width 12.5 % (11.6-14.4); White Blood Count 8.2 x10^3/uL (4.23-9.07)
[2025-02-10 09:35] LABS: ALBUMIN 4.2 g/dL (3.5-5.0); ANION GAP 18.5 MEQ/L (5-15); Calcium 8.8 mg/dL (8.4-10.2); Creatinine 1 1.12 mg/dL (0.66-1.25); EST GLOMERULAR FILTRATION RATE 71.6 ML/MIN; Potassium 4.1 mmol/L (3.5-5.1); Total Protein 6.6 g/dL (6.3-8.2)
[2025-02-10 09:38] VITALS: TEMP 98.4
[2025-02-10 10:47] VITALS: BP 178/82; PULSE 74; RESP 48; O2SAT 95
== END 2025-02-10 10:50 | disposition left against medical advice (07) ==
LOC: ED 16:04
DX: N13.2 Hydronephrosis with renal and ureteral calculous obstruction (principal); N20.0 Calculus of kidney; R10.9 Unspecified abdominal pain; E78.5 Hyperlipidemia, unspecified; I10 Essential (primary) hypertension; Z79.02 Long term (current) use of antithrombotics/antiplatelets; Z79.899 Other long term (current) drug therapy
CPT/HCPCS: 36415; 74176; 80053; 81001; 85025; 87086; 96361; 96365; 99284; 99285; J0696